=== PATIENT | male | born 1975 | race Caucasian/White ===

== ENCOUNTER 2016-11-03 18:05 | Emergency (ER) | payer OTHER ==
[~2016-11-03] VITALS: Ht 182.9 cm; Wt 150.0 kg
[2016-11-03 18:07] VITALS: BP 161/98; PULSE 84; RESP 17; TEMP 97.8; O2SAT 96
[2016-11-03 18:58] VITALS: O2SAT 98
[2016-11-03 19:07] VITALS: BP 137/102; PULSE 75; RESP 17; O2SAT 99
--- NOTE | 2016-11-03 19:12 | PD ---
HPI Chief Complaint: Abdominal Pain Time Seen by Provider: 19:03 Travel History International Travel<30 days: No Contact w/Intl Traveler<30days: No Traveled to known affect area: No History of Present Illness HPI 41-year-old male here with complaint of abdominal pain. For the last 8 months patient has had intermittent epigastric and right upper quadrant abdominal pain that radiates into the chest. States that this is somewhat burning and sharp in nature. It comes and goes. He has seen the ER in GI for this several times in [place] and has not been given a diagnosis. Patient states that he has had EKG, laboratory workup and ultrasound of the gallbladder that was normal. Patient states that he takes Tums "like candy", and it helps. Patient's pain has been back again for the last 5 days, sharp epigastric and right upper quadrant, moderate. It is better when he doesn't eat food. PFSH Past Medical History Medical History: Denies Significant Hx Past Surgical History Other Surgery: Yes (cyst on tailbone) Social History Tobacco Use: No (former smoker) Allergies-Medications (Allergen,Severity, Reaction): Coded Allergies: No Known Allergies (Unverified , 11/03/16) Reported Meds & Prescriptions Reported Meds & Active Scripts Active No Active Prescriptions or Reported Medications Review of Systems Except as stated in HPI: all other systems reviewed are Neg Physical Exam Narrative GENERAL: Morbidly obese male in no acute distress SKIN: Warm and dry. HEAD: Normocephalic. EYES: No scleral icterus. No injection or drainage. ENT: Mucous membranes pink and moist. NECK: Supple CARDIOVASCULAR: Regular rate and rhythm. No murmur appreciated. RESPIRATORY: No accessory muscle use. Clear to auscultation. Breath sounds equal bilaterally. GASTROINTESTINAL: Abdomen soft, morbidly obese. Epigastric and right upper quadrant abdominal pain without rebound or guarding. No CVA tenderness. MUSCULOSKELETAL: Normal gait NEUROLOGICAL: Awake and alert. Normal speech. PSYCHIATRIC: Appropriate mood and affect; insight and judgment normal. Data Data Last Documented VS Vital Signs Date Time Temp Pulse Resp B/P Pulse Ox O2 Delivery O2 Flow Rate FiO2 11/03/16 19:08 18 11/03/16 19:07 75 137/102 99 11/03/16 18:07 97.8 Orders Complete Blood Count With Diff (11/03/16 18:49) Comprehensive Metabolic Panel (11/03/16 18:49) Lipase (11/03/16 18:49) Iv Access Insert/Monitor (11/03/16 18:49) Ecg Monitoring (11/03/16 18:49) Oximetry (11/03/16 18:49) Us Abdomen Gallbladder (11/03/16 ) Morphine Inj (Morphine Inj) (11/03/16 19:15) Pantoprazole Inj (Protonix Inj) (11/03/16 19:15) Al-Mag Hy-Si 40-40-4 Mg/Ml Liq (Mag-Al P (11/03/16 19:15) Lidocaine 2% Viscous (Xylocaine 2% Visco (11/03/16 19:15) Labs Laboratory Tests Test 11/03/16 19:20 White Blood Count 9.8 TH/MM3 Red Blood Count 5.50 MIL/MM3 Hemoglobin 15.0 GM/DL Hematocrit 43.5 % Mean Corpuscular Volume 79.1 FL Mean Corpuscular Hemoglobin 27.2 PG Mean Corpuscular Hemoglobin 34.4 % Concent Red Cell Distribution Width 13.4 % Platelet Count 311 TH/MM3 Mean Platelet Volume 7.9 FL Neutrophils (%) (Auto) 68.2 % Lymphocytes (%) (Auto) 23.4 % Monocytes (%) (Auto) 6.8 % Eosinophils (%) (Auto) 1.1 % Basophils (%) (Auto) 0.5 % Neutrophils # (Auto) 6.7 TH/MM3 Lymphocytes # (Auto) 2.3 TH/MM3 Monocytes # (Auto) 0.7 TH/MM3 Eosinophils # (Auto) 0.1 TH/MM3 Basophils # (Auto) 0.1 TH/MM3 CBC Comment DIFF FINAL Differential Comment Sodium Level 138 MEQ/L Potassium Level 3.9 MEQ/L Chloride Level 100 MEQ/L Carbon Dioxide Level 29.6 MEQ/L Anion Gap 8 MEQ/L Blood Urea Nitrogen 10 MG/DL Creatinine 1.24 MG/DL Estimat Glomerular Filtration 64 ML/MIN Rate Random Glucose 81 MG/DL Calcium Level 9.5 MG/DL Total Bilirubin 0.4 MG/DL Aspartate Amino Transf 18 U/L (AST/SGOT) Alanine Aminotransferase 35 U/L (ALT/SGPT) Alkaline Phosphatase 83 U/L Total Protein 8.1 GM/DL Albumin 4.1 GM/DL Lipase 407 U/L MDM Medical Decision Making Medical Screen Exam Complete: Yes Emergency Medical Condition: Yes Medical Record Reviewed: Yes Differential Diagnosis 41-year-old morbidly obese male with 8 months of intermittent epigastric and right upper quadrant abdominal pain, burning and sharp, worse over the last 5 days. Differential includes gastritis, pancreatitis, hepatobiliary pathology, peptic ulcer disease, and less likely cardiac equivalent. Narrative Course Patient placed on monitor, IV established but obtained. A 12-lead EKG shows sinus rhythm without notable ST or T-wave abnormalities and normal intervals. Patient given morphine, IV PPI, GI cocktail for pain. CBC, CMP, lipase obtained and notable for lipase 407. Ultrasound unremarkable. Patient felt improved and will be discharged home with PPI and outpatient GI referral for possible endoscopy for peptic ulcer. Diagnosis Primary Impression: Gastritis Qualified Code: K29.50 - Chronic gastritis without bleeding, unspecified gastritis type Referrals: Obie Olsen MD call for appointment [facility] We[facility]her call for appointment Additional Instructions: Antacid as prescribed. Follow-up with GI physician for possible endoscopy as discussed. Med/Other Pt SpecificInfo: Prescription(s) given Scripts Pantoprazole (Protonix)40 Mg Tab40 Mg PO DAILY #30 TAB Ref 0 Prov:Lorri Vigil MD 11/03/16 Disposition: 01 DISCHARGE HOME Condition: Stable Lorri Vigil MD Nov 03, 2016 19:12
[2016-11-03] MEDS ORDERED: LIDOCAINE VISCOUS 2% SOLN 15 ML UDC PO ONE (19:15)
[2016-11-03] MEDS ORDERED: MORPHINE SULFATE 4 MG/ML INJ IV PUSH ONE (19:15)
[2016-11-03] MEDS ORDERED: ALUMINUM/MAGNESIUM/SIMETH 30 ML CUP PO ONE (19:15)
[2016-11-03] MEDS ORDERED: PANTOPRAZOLE SODIUM 40 MG VIAL IVP ONE (19:15)
[2016-11-03 19:37] LABS: AUTOMATED NEUTROPHIL # 6.7 TH/MM3 (1.8-7.7); BASOPHIL # 0.1 TH/MM3 (0-0.2); BASOPHIL % 0.5 % (0.0-2.0); EOSINOPHIL # 0.1 TH/MM3 (0-0.4); EOSINOPHIL % 1.1 % (0.0-4.0); HEMATOCRIT 43.5 % (39.0-51.0); HEMO FLAGS DIFF FINAL; LYMPH % 23.4 % (9.0-44.0); LYMPHOCYTE # 2.3 TH/MM3 (1.0-4.8); MEAN CELL VOLUME 79.1 FL (80.0-100.0); MEAN CORPUSCULAR HEMOGLOBIN 27.2 PG (27.0-34.0); MEAN CORPUSCULAR HGB CONC 34.4 % (32.0-36.0); MONO % 6.8 % (0.0-8.0); NEUT % 68.2 % (16.0-70.0); PLATELET COUNT 311 TH/MM3 (150-450); RED CELL DISTRIBUTION WIDTH 13.4 % (11.6-17.2); WHITE BLOOD COUNT 9.8 TH/MM3 (4.0-11.0)
[2016-11-03 19:44] LABS: ANION GAP 8 MEQ/L (5-15); AST (GOT) 18 U/L (15-37); BICARBONATE 29.6 MEQ/L (21.0-32.0); BLOOD UREA NITROGEN 10 MG/DL (7-18); CHLORIDE 100 MEQ/L (98-107); GLOMERULAR FILTRATION RATE 64 ML/MIN (>89); POTASSIUM 3.9 MEQ/L (3.5-5.1); SODIUM (NA) 138 MEQ/L (136-145)
[2016-11-03 19:48] LABS: ALKALINE PHOSPHATASE 83 U/L (45-117); ALT (GPT) 35 U/L (12-78); TOTAL BILIRUBIN ADULT 0.4 MG/DL (0.2-1.0)
--- NOTE | 2016-11-03 20:44 | RADRPT ---
EXAM DATE/TIME: 11/03/2016 19:29 [facility] COMPARISON: No previous studies available for comparison. INDICATIONS : Right upper quadrant pain. MEDICAL HISTORY : Abdominal pain. SURGICAL HISTORY : Cyst removed from tailbone. ENCOUNTER: Initial ACUITY: 7-11 months PAIN SCORE: 6/10 LOCATION: Right upper quadrant MEASUREMENTS: LIVER: 18.2 cm length COMMON DUCT: Non-visualized RIGHT KIDNEY: 11.2 x 6.1 x 5.5 cm FINDINGS: LIVER: Echogenic without focal lesion or ductal dilatation. Hepatopedal flow. COMMON DUCT: Not seen. GALLBLADDER: Contains no stones, demonstrates no wall thickening or pericholecystic fluid. PANCREAS: Not well seen. RIGHT KIDNEY: No evidence of hydronephrosis, stone, or mass. CONCLUSION: 1. Echogenic liver likely fatty infiltration. 2. No evidence for cholelithiasis. 3. Nonvisualization of the common bile duct and pancreas. Koffi Bhatti MD on November 03, 2016 at 20:40 Board Certified Radiologist. This report was verified electronically.
[2016-11-03] MEDS ORDERED: PROT40TA PO (20:47)
--- NOTE | 2016-11-04 08:17 | EKG ---
Date Performed: 11/03/2016 Time Performed: 19:04:30 PTAGE: 41 years EKG: Sinus rhythm NORMAL ECG NO PREVIOUS TRACING DOCTOR: Josesito Hair Interpretating Date/Time 11/04/2016 08:15:42
== END 2016-11-03 21:36 | disposition home or self-care (01) ==
LOC: NEPE 18:05
DX: K29.70 Gastritis, unspecified, without bleeding (principal); Z87.891 Personal history of nicotine dependence
CPT/HCPCS: 76705; 80053; 83690; 85025; 93005; 96374; 96375; 99284; C9113; J2270